=== PATIENT | female | born 1965 | race Caucasian/White ===

== ENCOUNTER 2017-03-25 01:43 | Emergency (ER) | payer BC ==
--- NOTE | 2017-03-25 01:55 | ED.PDOC ---
History of Present Illness - General Chief Complaint: Chest Pain/CA Stated Complaint: chest pain Time Seen by Provider: 03/25/17 01:49 Source: patient Exam Limitations: no limitations - History of Present Illness Initial Comments: Mary Sheikh 51 y/o female stated that she was in custody hearing this afternoon then after it was done had intermittent chest pressure left side chest that goes to back of her shoulders which make her unable to sleep.Stated that she had history of chest pain in the past 2013 was brought to [facility] and had cardiac ath ,cardiac stress test,echo but no lesions were noted. Timing/Duration: 7-24 hours, intermittent Severity/Quality: pressure Location: other - left side chest Chest Pain Radiation: shoulders Activities at Onset: rest Prior Chest Pain/Cardiac Workup: angina, cardiac cath, echocardiography Improving Factors: nothing Worsening Factors: nothing Nitro Today/Relief: 0.4 mg x 1, provided by ED Aspirin Treatment Today: 81 mg x 1 Associated Symptoms: nausea/vomiting Allergies/Adverse Reactions: Allergies NO KNOWN ALLERGY Allergy (Verified 03/25/17 03:18) Home Medications: Ambulatory Orders Fluticasone/Salmeterol 100/50 [Advair Diskus] 1 puff INH BID 05/20/14 Sertraline HCl [Zoloft] 1 each PO DAILY 05/20/14 Aspirin [Aspirin Childrens] 81 mg PO DAILY 03/25/17 Atorvastatin Calcium [Lipitor] 40 mg PO DAILY 03/25/17 Estradiol 2 mg PO DAILY 03/25/17 Fluticasone Prop 0.05% Nasal [Flonase Nasal [place]] 2 spray BNAS PRN 03/25/17 Medroxyprogesterone Acetate [Provera] 2.5 mg PO DAILY 03/25/17 Metformin HCl 500 mg PO BID 03/25/17 Review of Systems - Review of Systems Constitutional: States: no symptoms reported EENTM: States: no symptoms reported Respiratory: States: no symptoms reported Cardiology: States: see HPI Gastrointestinal/Abdominal: States: no symptoms reported Genitourinary: States: no symptoms reported Musculoskeletal: States: no symptoms reported Skin: States: no symptoms reported Neurological: States: no symptoms reported Past Medical History (General) - Patient Medical History Hx Seizures: No Hx Stroke: No Hx Dementia: No Hx Asthma: Yes - allergy induced Hx of COPD: No Hx Cardiac Disorders: No Hx Congestive Heart Failure: No Hx Pacemaker: No Hx Hypertension: No Hx Thyroid Disease: No Hx Diabetes: No Hx Gastroesophageal Reflux: No Hx Renal Disease: No Hx Cancer: No Hx of HIV: No Hx Hepatitis C: No Hx MRSA: No Surgical History: appendectomy, cholecystectomy, other - tubal ligation,cardiac cath - Vaccination History Hx Tetanus, Diphtheria Vaccination: Yes Hx Influenza Vaccination: Yes Hx Pneumococcal Vaccination: Yes - Social History Hx Tobacco Use: No Hx Chewing Tobacco Use: No Hx Alcohol Use: No Hx Substance Use: No Hx Substance Use Treatment: No Hx Depression: No Hx Physical Abuse: No Hx Emotional Abuse: No Hx Suspected Abuse: No - Activities of Daily Living Patient Lives Alone: No - family - Female History Patient : No Family Medical History - Family History Father Living Status: Hx Cardiac Disease: Yes - dad Physical Exam - Physical Exam General Appearance: Alert, Comfortable, No apparent distress Eyes, Ears, Nose, Throat Exam: PERRL/EOMI, normal ENT inspection, TMs normal, pharynx normal Neck: non-tender, full range of motion, supple Respiratory: chest non-tender, lungs clear Cardiovascular/Chest: normal peripheral pulses, regular rate, rhythm, no murmur Peripheral Pulses: radial,right: 1+, radial,left: 1+ Gastrointestinal/Abdominal: normal bowel sounds, non tender, soft, no organomegaly Extremity: normal range of motion, non-tender, normal inspection Neurologic: alert, oriented x 3 Skin Exam: normal color, warm/dry Lymphatic: no adenopathy Progress - Progress Progress: 03/25/17 02:46 Laboratory Tests 03/25/17 03/25/17 02:15 02:15 WBC 13.4 H RBC 4.55 Hgb 12.9 Hct 40.5 MCV 89.1 MCH 28.4 MCHC 31.9 L RDW 13.9 Plt Count 346 MPV 8.4 Absolute Neuts (auto) 9.10 H Absolute Lymphs (auto) 3.10 Absolute Monos (auto) 0.50 Absolute Eos (auto) 0.60 H Absolute Basos (auto) 0.10 Neutrophils % 67.8 Lymphocytes % 22.9 Monocytes % 4.1 Eosinophils % 4.7 Basophils % 0.5 PT 10.0 INR 0.880 PTT (SP) 32.7 D-Dimer, Quantitative < 230 Sodium 137 Potassium 3.5 L Chloride 103 Carbon Dioxide 20 L Anion Gap 17.5 BUN 12 Creatinine 0.83 BUN/Creatinine Ratio 14.5 Random Glucose 157 H Serum Osmolality 276.8 Calcium 9.1 Magnesium 1.8 Total Bilirubin 0.4 Direct Bilirubin < 0.1 Indirect Bilirubin 0.3 AST 19 ALT 16 Alkaline Phosphatase 59 Creatine Kinase 150 H Troponin I 0.39 H* Serum Total Protein 7.2 Albumin 3.7 - EKG/XRAY/CT EKG: Sinus, no ST T wave changes Comments: Heart rate 75 XRAY: chest - no acute abnormalities Departure - Departure Clinical Impression: Non-ST elevation CA (NSTEMI) Chest pain Qualifiers: Chest pain type: chest pain due to myocardial ischemia Ischemic chest pain type : unstable angina pectoris Qualified Code(s): I20.0 - Unstable angina Time of Disposition: : Disposition: Transfer to Hospital Condition: Fair Departure Forms: Patient Portal Self Enrollment Referrals: David Lynne MD [Primary Care Provider] - 1-2 Weeks Home Medications: Ambulatory Orders Fluticasone/Salmeterol 100/50 [Advair Diskus] 1 puff INH BID 05/20/14 Sertraline HCl [Zoloft] 1 each PO DAILY 05/20/14 Aspirin [Aspirin Childrens] 81 mg PO DAILY 03/25/17 Atorvastatin Calcium [Lipitor] 40 mg PO DAILY 03/25/17 Estradiol 2 mg PO DAILY 03/25/17 Fluticasone Prop 0.05% Nasal [Flonase Nasal [place]] 2 spray BNAS PRN 03/25/17 Medroxyprogesterone Acetate [Provera] 2.5 mg PO DAILY 03/25/17 Metformin HCl 500 mg PO BID 03/25/17 Transfer to Outside Facility - Transfer Information Accepting Facility: [facility] Reason for Transfer: clinical laboratory assistant
[2017-03-25] MEDS ORDERED: ASPIRIN TABLET 325 MG TAB PO ONE (01:58)
[2017-03-25] MEDS ORDERED: NITROGLYCERIN 0.4 MG 25 EA TAB SL ONE (01:58)
[2017-03-25] MEDS ORDERED: SODIUM CHLORIDE 0.9% (FLUSH) 10 ML SYG IV PRN (01:58)
[2017-03-25] MEDS ORDERED: ASPIRIN (CHEWABLE) 81 MG TAB ONE (01:59)
[2017-03-25] MEDS ORDERED: NITROGLYCERIN/D5W IV 250 ML IVS ONE (02:56)
[2017-03-25] MEDS ORDERED: NITROGLYCERIN/D5W IV 50,000 MCG in PREMIX BOTTLE 1 BOTTLE IVS SCH (03:00)
[2017-03-25] MEDS ORDERED: CLOPIDOGREL 75 MG TAB PO ONE (03:15)
[2017-03-25] MEDS ORDERED: HEPARIN PREMIX 25,000 UNITS in PREMIX BAG 1 BAG IVS SCH (03:15)
[2017-03-25] MEDS ORDERED: SODIUM CHLORIDE 0.9% 1000ML 1,000 ML IVS ONE (03:25)
[2017-03-25] MEDS ORDERED: HEPARIN PREMIX 500 ML ONE (03:25)
[2017-03-25 03:49] VITALS: O2SAT 96
[2017-03-25 04:04] VITALS: TEMP 98.1
[2017-03-25 04:56] VITALS: BP 144/87
--- NOTE | 2017-03-25 08:00 | RAD ---
EXAM DESCRIPTION: Chest,1 View CLINICAL HISTORY: pain COMPARISON: July 19, 2014 IMPRESSION: Single AP portable upright view of the chest shows cardiac silhouette and pulmonary vasculature to be within normal limits. Prominent right epicardial fat pad is stable. Lungs are normally aerated and clear. No obvious pleural effusion or pneumothorax is seen. Electronically signed by: Kenyon Slaughter MD 03/25/2017 7:59 AM CDT
== END 2017-03-25 05:00 | disposition short-term general hospital (02) ==
LOC: ER 01:43
DX: I21.4 Non-ST elevation (NSTEMI) myocardial infarction (principal); Z79.82 Long term (current) use of aspirin; Z79.899 Other long term (current) drug therapy
CPT/HCPCS: 36415; 71010; 80048; 80076; 80307; 81001; 82550; 82553; 84484; 85025; 85379; 85610; 85730; 93005; J1644; J7030

== ENCOUNTER → 2017-06-08 | Outpatient (CLI) | payer BC | END | disposition home or self-care (01) | LOC: LAB.O 08:09 | PROVIDERS: ATTEND Internal Medicine Cardiovascular Disease | DX: R07.9 Chest pain, unspecified (principal); R06.7 Sneezing ==

== ENCOUNTER → 2017-06-27 | Outpatient (CLI) | payer BC ==
--- NOTE | 2017-06-28 08:39 | US ---
EXAM DESCRIPTION: Thyroid CLINICAL HISTORY: 51 years Female, ABN SONO COMPARISON: None. FINDINGS: The right thyroid lobe measures 3.8 x 1.6 x 1.2 cm. It contains 2 tiny cystic and solid nodules in its inferior pole measuring up to 6 mm diameter. The thyroid isthmus is not thickened. The left thyroid lobe measures 3.8 x 1.4 x 1.5 cm. It contains an 11 mm predominantly solid nodule in its inferior pole with a few tiny microcalcifications. There is a second 11 mm predominantly solid nodule in the mid left thyroid lobe. Neither thyroid lobe appears hypervascular. IMPRESSION: Bilateral solid or solid and cystic thyroid nodules as detailed above measuring up to 11 mm diameter in the left thyroid lobe. No dominant nodule, and short-term follow-up ultrasound in 6-9 months is recommended. Alternatively, biopsy of one or both of the left thyroid nodules could be performed. Electronically signed by: Yvon Patel MD 06/28/2017 8:38 AM SAFETY COMPLIANCE SPECIALIST
== END | disposition home or self-care (01) ==
LOC: US 10:02
PROVIDERS: ATTEND Family Medicine
DX: R93.8 Abnormal findings on diagnostic imaging of other specified body structures (principal)

== ENCOUNTER → 2017-12-23 | Outpatient (CLI) | payer BC ==
--- NOTE | 2017-12-23 11:29 | RAD ---
EXAM DESCRIPTION: Ankle,Left 3 Views CLINICAL HISTORY: 52 years, Female, LEFT ANKLE PAIN M25.571 COMPARISON: None. TECHNIQUE: AP/lateral/oblique of the left ankle FINDINGS: Intact medial and lateral malleolus. There is moderate soft tissue swelling laterally. Intact proximal metatarsals. Intact dome of the talus. Lateral view shows no evidence of fracture of the body of the talus or calcaneus. No calcaneal spurring is seen. No ankle joint narrowing, spurring or effusion. IMPRESSION: Negative for fracture or dislocation. Electronically signed by: Diego Smith MD 12/23/2017 11:27 AM CDT
--- NOTE | 2017-12-23 11:31 | RAD ---
EXAM DESCRIPTION: Ankle,Right 3 Views CLINICAL HISTORY: 52 years, Female, RIGHT ANKLE PAIN M25.571 COMPARISON: None. TECHNIQUE: AP/lateral/oblique of the right ankle FINDINGS: Intact medial malleolus. Plate and screws are seen through the distal fibula with screws traversing the tibial metaphysis. Rarefaction is seen around the two long screws suggesting loosening. There is minimal soft tissue swelling laterally. Intact proximal metatarsals. Intact dome of the talus. Lateral view shows no evidence of fracture of the body of the talus or calcaneus. No calcaneal spurring is seen. IMPRESSION: Orthopedic hardware in the distal right fibula and tibia with evidence of long screw loosening. Electronically signed by: Diego Smith MD 12/23/2017 11:30 AM CDT
--- NOTE | 2017-12-23 12:07 | RAD ---
EXAM DESCRIPTION: Foot,Right 3 Views CLINICAL HISTORY: 52 years, Female, FOOT PN COMPARISON: None TECHNIQUE: AP, lateral, and oblique views of the right foot FINDINGS: Orthopedic hardware is seen at the ankle. No midfoot malalignment. No fracture of the bones of the toes or metatarsals or mid foot. Lateral view shows intact talus and calcaneus. Question minimal plantar calcaneal enthesophyte developing. There is no other bone, joint, or soft tissue abnormality observed. IMPRESSION: Negative for fracture of the foot. Orthopedic hardware at the ankle. Electronically signed by: Diego Smith MD 12/23/2017 12:06 PM CDT
== END ==
LOC: RAD 07:59
PROVIDERS: ATTEND Orthopaedic Surgery
DX: M25.571 Pain in right ankle and joints of right foot (principal); M25.572 Pain in left ankle and joints of left foot; T84.218A Breakdown (mechanical) of internal fixation device of other bones, initial encounter